=== PATIENT | female | born 1965 | race Caucasian/White ===

== ENCOUNTER → 2016-10-12 | Outpatient (CLI) | payer BC, OTHER ==
[~2016-10-12] MED LIST: BUSP15TA70 PO; CHOL100010 PO; VENL100T2 PO; XNX25 PO; ZOLP10TA6 PO
--- NOTE | 2016-10-12 15:34 | DIAGNOSTIC IMAGING REPORT ---
RIGHT SHOULDER 3 VIEWS HISTORY: RIGHT SHOULDER PAIN Right COMPARISON: None. FINDINGS: There is no fracture or dislocation. Soft tissues are unremarkable. No radiopaque foreign bodies. The right clavicle is intact. IMPRESSION: No fractures. Electronically signed by: Eren Mercado M.D. 10/12/2016 3:33 PM Dictated Date/Time: 10/12/2016 3:30 PM
== END | disposition home or self-care (01) ==
LOC: C.RDSM 11:13
PROVIDERS: ATTEND Family Medicine
DX: M25.511 Pain in right shoulder (principal)